=== PATIENT | female | born 1985 | race Caucasian/White ===

== ENCOUNTER 2018-05-31 12:36 | Emergency (ER) | payer SELFPAY ==
[2018-05-31] MEDS ORDERED: HYDROCODONE/APAP 7.5/325 MG TAB ONE (13:29)
--- NOTE | 2018-05-31 13:41 | RAD REPORT ---
EXAM DESCRIPTION: RAD - Ankle Left 3 View -05/31/2018 1:36 pm CLINICAL HISTORY: Left ankle pain status post injury FINDINGS: No fracture or dislocation is seen. Soft tissue swelling present
--- NOTE | 2018-05-31 13:56 | ER ---
Nurse's Notes [facility] Name: Freddy Howard Age: 32 yrs Sex: Female : 1985 Arrival Date: 05/31/2018 Time: 12:39 Bed 9 Private MD: None, None Diagnosis: Left ankle sprain Presentation: 05/31 12:54 Presenting complaint: Patient states: was walking in heels last night, stepped wrong, iw now can't put weight on left ankle. Transition of care: patient was not received from another setting of care. Onset of symptoms was May 31, 2018. Risk Assessment: Do you want to hurt yourself or someone else? Patient reports no desire to harm self or others. Initial Sepsis Screen: Does the patient meet any 2 criteria? No. Patient's initial sepsis screen is negative. Does the patient have a suspected source of infection? No. Patient's initial sepsis screen is negative. Care prior to arrival: None. 12:54 Method Of Arrival: Wheelchair iw 12:54 Acuity: SHELLY 4 iw Triage Assessment: 14:15 General: Appears in no apparent distress. iw 14:15 General: Behavior is calm. 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 - Social history:: Smoking status: Patient uses tobacco products, denies chronic smoking, but will smoke occasionally. - Ebola Screening: : Patient negative for fever greater than or equal to 101.5 degrees Fahrenheit, and additional compatible Ebola Virus Disease symptoms Patient denies exposure to infectious person Patient denies travel to an Ebola-affected area in the 21 days before illness onset No symptoms or risks identified at this time. Screenin:17 Abuse screen: Denies threats or abuse. Denies injuries from another. Nutritional iw screening: No deficits noted. Tuberculosis screening: No symptoms or risk factors identified. Fall Risk Fall in past 12 months (25 points). Assessment: 13:15 General: Appears in no apparent distress. Behavior is calm, cooperative. Pain: iw Complains of pain in left foot and left lateral malleolus. Neuro: Level of Consciousness is awake, alert, obeys commands, Oriented to person, place, time, situation, Moves all extremities. Cardiovascular: Patient's skin is warm and dry. Respiratory: Respiratory effort is even, unlabored, Respiratory pattern is regular. Derm: Skin is intact, is healthy with good turgor. Musculoskeletal: Range of motion: limited in left ankle Swelling present in left foot. Vital Signs: 12:56 BP 106 / 84; Pulse 89; Resp 16; Temp 98.2; Pulse Ox 98% on R/A; Weight 61.23 kg; Height iw 5 ft. 5 in. (165.10 cm); Pain 10/10; 12:56 Body Mass Index 22.46 (61.23 kg, 165.10 cm) iw ED Course: 12:39 Patient arrived in ED. mr 12:40 None, None is Private Physician. mr 12:56 Triage completed. iw 12:58 Fred Crook MD is Attending Physician. ps1 13:14 Rima Mccoy RN is Primary Nurse. iw 13:15 Arm band placed on. iw 13:15 Patient has correct armband on for positive identification. iw 13:35 X-ray completed. Portable x-ray completed in exam room. Patient tolerated procedure jb2 well. 13:39 Ankle Left 3 View XRAY In Process Unspecified. EDMS 14:17 No provider procedures requiring assistance completed. Patient did not have IV access iw during this emergency room visit. Administered Medications: 13:23 Drug: Mineral (7.5 mg-325 mg) 1 tabs Route: PO; iw Outcome: 13:55 Discharge ordered by . ps1 14:17 Discharged to home ambulatory, with crutches, with family. iw 14:17 Condition: good 14:17 Discharge instructions given to patient, Instructed on discharge instructions, follow up and referral plans. medication usage, Demonstrated understanding of instructions, follow-up care, medications, Prescriptions given X 4. 14:18 Patient left the ED. iw Signatures: Dispatcher [employer] [address] Manjinder jb2 Rima Mccoy, SHIRLEY RN iw Fred Crook MD MD ps1
--- NOTE | 2018-05-31 13:56 | EDPHYS ---
Physician Documentation [facility] Name: Freddy Howard Age: 32 yrs Sex: Female : 1985 Arrival Date: 05/31/2018 Time: 12:39 Bed 9 Private MD: None, None ED Physician Fred Crook HPI: 05/31 13:03 This 32 yrs old Female presents to ER via Wheelchair with complaints of Ankle ps1 Injury. 13:03 Onset was last night at [employer]. Patient was going to bathroom and rolled ankle. ps1 Braced herself and did not fall. Described an eversion injury. Now has pain and swelling in left ankle. Pain localized to lateral malleolus. Rated as moderate. Unable to bear weight. . 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 - Social history:: Smoking status: Patient uses tobacco products, denies chronic smoking, but will smoke occasionally. - Ebola Screening: : Patient negative for fever greater than or equal to 101.5 degrees Fahrenheit, and additional compatible Ebola Virus Disease symptoms Patient denies exposure to infectious person Patient denies travel to an Ebola-affected area in the 21 days before illness onset No symptoms or risks identified at this time. ROS: 13:03 Constitutional: Negative for fever, chills, and weight loss, Eyes: Negative for injury, ps1 pain, redness, and discharge, ENT: Negative for injury, pain, and discharge, Cardiovascular: Negative for chest pain, palpitations, and edema, Respiratory: Negative for shortness of breath, cough, wheezing, and pleuritic chest pain, Abdomen/GI: Negative for abdominal pain, nausea, vomiting, diarrhea, and constipation, Back: Negative for injury and pain, Skin: Negative for injury, rash, and discoloration, Neuro: Negative for headache, weakness, numbness, tingling, and seizure, Psych: Negative for depression, anxiety, suicide ideation, homicidal ideation, and hallucinations. 13:03 MS/extremity: Positive for contusion, decreased range of motion, tenderness, of the left lateral malleolus. Exam: 13:57 Constitutional: This is a well developed, well nourished patient who is awake, alert, ps1 and in no acute distress. Head/Face: Normocephalic, atraumatic. Eyes: Pupils equal round and reactive to light, extra-ocular motions intact. Lids and lashes normal. Conjunctiva and sclera are non-icteric and not injected. Chest/axilla: Normal chest wall appearance and motion. Nontender with no deformity. No lesions are appreciated. Cardiovascular: Regular rate and rhythm. No gallops, murmurs, or rubs. Normal PMI, no JVD. No pulse deficits. Respiratory: Lungs have equal breath sounds bilaterally, clear to auscultation and percussion. No rales, rhonchi or wheezes noted. No increased work of breathing, no retractions or nasal flaring. Abdomen/GI: Soft, non-tender, with normal bowel sounds. No distension or tympany. No guarding or rebound. No evidence of tenderness throughout. Neuro: Awake and alert, GCS 15, oriented to person, place, time, and situation. Cranial nerves II-XII grossly intact. Sensory grossly intact. 13:57 Musculoskeletal/extremity: Extremities: grossly normal except: noted in the left lateral malleolus: decreased ROM, ecchymosis, pain. Vital Signs: 12:56 BP 106 / 84; Pulse 89; Resp 16; Temp 98.2; Pulse Ox 98% on R/A; Weight 61.23 kg; Height iw 5 ft. 5 in. (165.10 cm); Pain 10/10; 12:56 Body Mass Index 22.46 (61.23 kg, 165.10 cm) iw MDM: 13:09 Patient medically screened. ps1 13:57 Data reviewed: vital signs, nurses notes, radiologic studies, and as a result, I will ps1 discharge patient. 05/31 13:10 Order name: Ankle Left 3 View XRAY ps1 Administered Medications: 13:23 Drug: Palmetto (7.5 mg-325 mg) 1 tabs Route: PO; iw Disposition: 05/31/18 13:55 Discharged to Home. Impression: Left ankle sprain. - Condition is Stable. - Discharge Instructions: Ankle Sprain. - Prescriptions for Anaprox DS 550 mg Oral Tablet - take 1 tablet by ORAL route every 12 hours As needed; 20 tablet. Robaxin 500 mg Oral Tablet - take 2 tablet by ORAL route every 6 hours As needed; 40 tablet. Tylenol- Codeine #3 300-30 mg Oral Tablet - take 2 tablet by ORAL route every 6 hours As needed; 30 tablet. Medrol (Eliezer) 4 mg Oral Tablets, Dose Pack - take 1 tablet by ORAL route as directed - follow package instructions; 1 packet. - Medication Reconciliation Form, Thank You Letter, Antibiotic Education, Prescription Opioid Use form. - Follow up: Private Physician; When: As needed; Reason: Further diagnostic work-up, Recheck today's complaints, Continuance of care. Follow up: Emergency Department; When: As needed; Reason: Worsening of condition. - Problem is new. - Symptoms have improved. Signatures: Dispatcher [employer] [facility] Rima Mccoy RN RN iw Fred Crook MD MD ps1 Corrections: (The following items were deleted from the chart) 13:23 13:10 Ankle Left 3 View+RAD.RAD.BRZ ordered. [facility] 14:18 13:55 05/31/2018 13:55 Discharged to Home. Impression: Left ankle sprain. Condition is iw Stable. Forms are Medication Reconciliation Form, Thank You Letter, Antibiotic Education, Prescription Opioid Use. Follow up: Private Physician; When: As needed; Reason: Further diagnostic work-up, Recheck today's complaints, Continuance of care. Follow up: Emergency Department; When: As needed; Reason: Worsening of condition. Problem is new. Symptoms have improved. ps1
== END 2018-05-31 14:18 | disposition home or self-care (01) ==
LOC: ER 12:36
DX: S93.402A Sprain of unspecified ligament of left ankle, initial encounter (principal); X58.XXXA Exposure to other specified factors, initial encounter; Y93.89 Activity, other specified; Y92.511 Restaurant or cafe as the place of occurrence of the external cause; Z72.0 Tobacco use
CPT/HCPCS: 99283

== ENCOUNTER 2019-06-03 04:39 | Emergency (ER) | payer SELFPAY ==
--- OUTSIDE RECORDS SUMMARY | 2019-06-03 04:41 | XMS REPORT ---
:1985 Author Organization [facility] Address [address] [place] [address] [place] [id number] Care Team Providers Name Role Phone Unavailable Unavailable Unavailable Problems This patient has no known problems. Allergies, Adverse Reactions, Alerts This patient has no known allergies or adverse reactions. Medications This patient has no known medications.
[2019-06-03] MEDS ORDERED: ONDANSETRON 4 MG/2 ML VIAL ONE (05:08)
[2019-06-03 05:16] LABS: Absolute Lymphocytes (CBC) 1.3 K/uL (0.7-4.9); Basophils % 0.4 % (0-1.3); Hematocrit 30.6 % (36.0-45.0); Lymphocytes % 31.9 % (15.3-44.8); MPV 8.9 fL (7.6-11.3); RBC Red Blood Cell Count 3.92 M/uL (3.86-4.86)
[2019-06-03] MEDS ORDERED: MORPHINE 2 MG/ML SYR ONE (05:19)
[2019-06-03] MEDS ORDERED: NA CHLORIDE 0.9% 1,000 ML ONE (05:19)
[2019-06-03 06:08] LABS: ALT/SGPT 18 U/L (12-78); AST/SGOT 21 U/L (15-37); Albumin 3.9 g/dL (3.4-5.0); Alkaline Phosphatase 57 U/L (45-117); BUN Blood Urea Nitrogen 11 mg/dL (7-18); Bicarbonate 26 mmol/L (21-32); Bilirubin Direct < 0.1 mg/dL (0-0.2); Bilirubin Total 0.2 mg/dL (0.2-1.0); Glucose Level 92 mg/dL (74-106); Lipase 127 U/L (73-393); Potassium 3.5 mmol/L (3.5-5.1); Protein, Total 7.7 g/dL (6.4-8.2); Sodium Level 140 mmol/L (136-145)
[2019-06-03] MEDS ORDERED: KETOROLAC 30 MG/ML INJ ONE (06:27)
--- NOTE | 2019-06-03 06:29 | ER ---
Nurse's Notes [facility] Name: Freddy Howard Age: 33 yrs Sex: Female : 1985 Arrival Date: 06/03/2019 Time: 04:42 Bed 5 Private MD: Diagnosis: Vomiting;Streptococcal pharyngitis;Cough Presentation: 06/03 04:44 Presenting complaint: Patient states: I have had a cough for a week, it became jb4 productive on Tuesday. I vomited once on Tuesday. Then I developed a migraine headache today and have vomited 5 times. 04:44 Transition of care: patient was not received from another setting of care. Onset of jb4 symptoms was May 27, 2019. Risk Assessment: Do you want to hurt yourself or someone else? Patient reports no desire to harm self or others. Initial Sepsis Screen: Does the patient meet any 2 criteria? No. Patient's initial sepsis screen is negative. Does the patient have a suspected source of infection? Yes: Productive cough/pneumonia. Care prior to arrival: None. 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 - Coronavirus screen:: The patient has NOT traveled to [place] in the past 14 days. Proceed with normal triage process as indicated. The patient has NOT had contact with known/suspected case of Coronavirus? Proceed with normal triage procedures. - Social history:: Smoking status: Patient reports the use of cigarette tobacco products, denies chronic smoking, but will smoke occasionally. - Family history:: not pertinent. - Ebola Screening: : No symptoms or risks identified at this time. Screenin:44 Abuse screen: Denies threats or abuse. Nutritional screening: No deficits noted. jb4 Tuberculosis screening: No symptoms or risk factors identified. Fall Risk None identified. Assessment: 04:44 General: Appears in no apparent distress. uncomfortable, Behavior is calm, cooperative, jb4 appropriate for age. Pain: Complains of pain in headache. Pain does not radiate. Pain currently is 10 out of 10 on a pain scale. Quality of pain is described as throbbing. Neuro: Level of Consciousness is awake, alert, obeys commands, Oriented to person, place, time, situation. Cardiovascular: Patient's skin is warm and dry. Respiratory: Airway is patent Respiratory effort is even, unlabored, Respiratory pattern is regular, symmetrical. GI: Abdomen is flat, non-distended, Reports nausea, vomiting. : No signs and/or symptoms were reported regarding the genitourinary system. EENT: No signs and/or symptoms were reported regarding the EENT system. Derm: Skin is intact, Skin is pink, warm \T\ dry. Musculoskeletal: Circulation, motion, and sensation intact. Range of motion: intact in all extremities. 05:45 Reassessment: Patient appears in no apparent distress at this time. Patient and/or jb4 family updated on plan of care and expected duration. Pain level reassessed. Patient is alert, oriented x 3, equal unlabored respirations, skin warm/dry/pink. Rates pain at 7/10 from 10/10 Patient states feeling better. 06:48 Reassessment: Patient appears in no apparent distress at this time. Patient and/or jb4 family updated on plan of care and expected duration. Pain level reassessed. Patient is alert, oriented x 3, equal unlabored respirations, skin warm/dry/pink. PT has decreased to 1/10 Patient states feeling better. Vital Signs: 04:44 BP 129 / 88; Pulse 75; Resp 16; Temp 98.4(O); Pulse Ox 98% on R/A; Weight 61.23 kg (R); jb4 Height 5 ft. 5 in. (165.10 cm) (R); Pain 10/10; 05:45 BP 109 / 62; Pulse 64; Resp 16; Pulse Ox 100% on R/A; jb4 06:00 Pain 7/10; jb4 06:30 BP 104 / 70; Pulse 76; Resp 16; Pulse Ox 98% on R/A; jb4 04:44 Body Mass Index 22.46 (61.23 kg, 165.10 cm) jb4 ED Course: 04:42 Patient arrived in ED. es 04:44 Arm band placed on right wrist. jb4 04:44 Patient has correct armband on for positive identification. Bed in low position. Call jb4 light in reach. Side rails up X 1. Pulse ox on. NIBP on. 04:48 Basil Scales MD is Attending Physician. yolette 04:53 El Flanagan, RN is Primary Nurse. jb4 04:58 Triage completed. jb4 05:12 Inserted saline lock: 20 gauge in right antecubital area, using aseptic technique. jd3 Blood collected. placed by Tamiko VIGIL. 06:55 No provider procedures requiring assistance completed. IV discontinued, intact, jb4 bleeding controlled, No redness/swelling at site. Pressure dressing applied. 08:56 Chest Pa And Lat (2 Views) XRAY In Process Unspecified. EDMS 09:02 CT Head Brain wo Cont In Process Unspecified. EDMS Administered Medications: 05:05 Drug: Zofran 4 mg Route: IVP; Site: right antecubital; jb4 06:00 Follow up: Response: No adverse reaction; Nausea is decreased jb4 05:20 Drug: morphine 2 mg Route: IVP; Site: right antecubital; jb4 06:00 Follow up: Pain 7/10 Adult; Response: No adverse reaction; Pain is decreased; RASS: jb4 Alert and Calm (0) 05:46 Drug: NS 0.9% 1000 ml Route: IV; Rate: 1 bolus; Site: right antecubital; jb4 06:30 Follow up: Response: No adverse reaction; IV Status: Completed infusion; IV Intake: jb4 1000ml 06:26 Drug: TORadol 30 mg Route: IVP; Site: right antecubital; jb4 06:47 Follow up: Response: No adverse reaction; Pain is decreased jb4 06:42 Drug: Rocephin 1 grams Route: IV; Rate: per protocol; Site: right antecubital; jb4 06:45 Follow up: Response: No adverse reaction; IV Status: Completed infusion; IV Intake: 30xisc7 06:44 Drug: Augmentin 875 mg Route: PO; jb4 06:46 Follow up: Response: No adverse reaction; Medication administered at discharge. jb4 Intake: 06:30 IV: 1000ml; Total: 1000ml. jb4 06:45 IV: 10ml; Total: 1010ml. jb4 Outcome: 06:29 Discharge ordered by . yolette 06:55 Discharged to home ambulatory, with friend. jb4 06:55 Condition: stable 06:55 Discharge instructions given to patient, friend, Instructed on discharge instructions, follow up and referral plans. medication usage, Demonstrated understanding of instructions, follow-up care, medications, Prescriptions given X 3. 06:56 Patient left the ED. jb4 Signatures: Dispatcher [employer] Basil Solorzano MD MD cha Salyer, Edna es Bryson, James RN RN jb4 Lance Varghese RN RN jd3 Corrections: (The following items were deleted from the chart) 06:30 05:45 Reassessment: Patient appears in no apparent distress at this time. Patient jb4 and/or family updated on plan of care and expected duration. Pain level reassessed. Patient is alert, oriented x 3, equal unlabored respirations, skin warm/dry/pink. Patient states feeling better. jb4
--- NOTE | 2019-06-03 06:30 | EDPHYS ---
Physician Documentation [facility] Name: Freddy Howard Age: 33 yrs Sex: Female : 1985 Arrival Date: 06/03/2019 Time: 04:42 Bed 5 Private MD: ED Physician Basil Scales HPI: 06/03 05:13 This 33 yrs old Female presents to ER via Ambulatory with complaints of yolette Vomiting, Headache, Cough. 05:13 The patient presents to the emergency department with nausea, vomiting. Onset: The yolette symptoms/episode began/occurred 5 day(s) ago. Possible causes: unknown. The symptoms are aggravated by nothing. The symptoms are alleviated by nothing. Associated signs and symptoms: The patient has no apparent associated signs or symptoms. Severity of symptoms: At their worst the symptoms were moderate in the emergency department the symptoms are unchanged. The patient has not experienced similar symptoms in the past. 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 - Coronavirus screen:: The patient has NOT traveled to [place] in the past 14 days. Proceed with normal triage process as indicated. The patient has NOT had contact with known/suspected case of Coronavirus? Proceed with normal triage procedures. - Social history:: Smoking status: Patient reports the use of cigarette tobacco products, denies chronic smoking, but will smoke occasionally. - Family history:: not pertinent. - Ebola Screening: : No symptoms or risks identified at this time. ROS: 05:13 Constitutional: Negative for fever, chills, and weight loss, Eyes: Negative for injury, yolette pain, redness, and discharge, ENT: Negative for injury, pain, and discharge, Neck: Negative for injury, pain, and swelling, Cardiovascular: Negative for chest pain, palpitations, and edema, Back: Negative for injury and pain, : Negative for injury, bleeding, discharge, and swelling, MS/Extremity: Negative for injury and deformity, Skin: Negative for injury, rash, and discoloration, Psych: Negative for depression, anxiety, suicide ideation, homicidal ideation, and hallucinations, Allergy/Immunology: Negative for hives, rash, and allergies, Endocrine: Negative for neck swelling, polydipsia, polyuria, polyphagia, and marked weight changes, Hematologic/Lymphatic: Negative for swollen nodes, abnormal bleeding, and unusual bruising. 05:13 Respiratory: Positive for cough. 05:13 Abdomen/GI: Positive for nausea and vomiting. 05:13 Neuro: Positive for headache. Exam: 05:13 Constitutional: This is a well developed, well nourished patient who is awake, alert, yolette and in no acute distress. Head/Face: Normocephalic, atraumatic. Eyes: Pupils equal round and reactive to light, extra-ocular motions intact. Lids and lashes normal. Conjunctiva and sclera are non-icteric and not injected. Cornea within normal limits. Periorbital areas with no swelling, redness, or edema. ENT: Nares patent. No nasal discharge, no septal abnormalities noted. Tympanic membranes are normal and external auditory canals are clear. Oropharynx with no redness, swelling, or masses, exudates, or evidence of obstruction, uvula midline. Mucous membranes moist. Neck: Trachea midline, no thyromegaly or masses palpated, and no cervical lymphadenopathy. Supple, full range of motion without nuchal rigidity, or vertebral point tenderness. No Meningismus. Chest/axilla: Normal chest wall appearance and motion. Nontender with no deformity. No lesions are appreciated. Cardiovascular: Regular rate and rhythm with a normal S1 and S2. No gallops, murmurs, or rubs. Normal PMI, no JVD. No pulse deficits. Respiratory: Lungs have equal breath sounds bilaterally, clear to auscultation and percussion. No rales, rhonchi or wheezes noted. No increased work of breathing, no retractions or nasal flaring. Abdomen/GI: Soft, non-tender, with normal bowel sounds. No distension or tympany. No guarding or rebound. No evidence of tenderness throughout. Back: No spinal tenderness. No costovertebral tenderness. Full range of motion. Female : Normal external genitalia. Skin: Warm, dry with normal turgor. Normal color with no rashes, no lesions, and no evidence of cellulitis. MS/ Extremity: Pulses equal, no cyanosis. Neurovascular intact. Full, normal range of motion. Neuro: Awake and alert, GCS 15, oriented to person, place, time, and situation. Cranial nerves II-XII grossly intact. Motor strength 5/5 in all extremities. Sensory grossly intact. Cerebellar exam normal. Normal gait. Psych: Awake, alert, with orientation to person, place and time. Behavior, mood, and affect are within normal limits. 05:13 Neck: ROM/movement: is normal, no acute changes, Meningeal signs: are not present, Kernig's sign is negative, Brudzinski's sign is negative. Vital Signs: 04:44 BP 129 / 88; Pulse 75; Resp 16; Temp 98.4(O); Pulse Ox 98% on R/A; Weight 61.23 kg (R); jb4 Height 5 ft. 5 in. (165.10 cm) (R); Pain 10/10; 05:45 BP 109 / 62; Pulse 64; Resp 16; Pulse Ox 100% on R/A; jb4 06:00 Pain 7/10; jb4 06:30 BP 104 / 70; Pulse 76; Resp 16; Pulse Ox 98% on R/A; jb4 04:44 Body Mass Index 22.46 (61.23 kg, 165.10 cm) 4 MDM: 04:48 Patient medically screened. [facility] 05:15 Data reviewed: vital signs, nurses notes, lab test result(s), radiologic studies, CT yolette scan, plain films. 06/03 05:01 Order name: Basic Metabolic Panel [facility] 06/03 05:01 Order name: CBC with Diff [facility] 06/03 05:01 Order name: Creatinine for Radiology [facility] 06/03 05:01 Order name: Hepatic Function [facility] 06/03 05:01 Order name: Lipase [facility] 06/03 05:12 Order name: Strep [facility] 06/03 05:12 Order name: Flu [facility] 06/03 05:16 Order name: CBC with Automated Diff; Complete Time: 06:04 [facility] 06/03 05:48 Order name: Creatinine (Radiology Only); Complete Time: 06:04 [facility] 06/03 05:56 Order name: Group A Streptococcus Rapid Sc; Complete Time: 06:04 [facility] 06/03 05:56 Order name: Influenza Screen (A ; Complete Time: 06:04 [facility] 06/03 06:09 Order name: Basic Metabolic Panel; Complete Time: 06:22 [facility] 06/03 06:09 Order name: Liver (Hepatic) Function; Complete Time: 06:22 [facility] 06/03 06:09 Order name: Lipase; Complete Time: 06:22 [facility] 06/03 05:01 Order name: IV Saline Lock; Complete Time: 05:08 [facility] 06/03 05:01 Order name: Labs collected and sent; Complete Time: 05:09 [facility] 06/03 05:01 Order name: Chest Pa And Lat (2 Views) XRAY [facility] 06/03 05:12 Order name: CT Head Brain wo Cont [facility] 06/03 05:12 Order name: Urine Dipstick-Ancillary (obtain specimen); Complete Time: 06:12 [facility] 06/03 05:12 Order name: Urine Test (obtain specimen); Complete Time: 06:12 [facility] 06/03 06:14 Order name: Urine Dipstick--Ancillary (enter results) ar5 06/03 06:14 Order name: Urine --Ancillary (enter results) id5 Administered Medications: 05:05 Drug: Zofran 4 mg Route: IVP; Site: right antecubital; 4 06:00 Follow up: Response: No adverse reaction; Nausea is decreased jb4 05:20 Drug: morphine 2 mg Route: IVP; Site: right antecubital; jb4 06:00 Follow up: Pain 7/10 Adult; Response: No adverse reaction; Pain is decreased; RASS: 4 Alert and Calm (0) 05:46 Drug: NS 0.9% 1000 ml Route: IV; Rate: 1 bolus; Site: right antecubital; jb4 06:30 Follow up: Response: No adverse reaction; IV Status: Completed infusion; IV Intake: jb4 1000ml 06:26 Drug: TORadol 30 mg Route: IVP; Site: right antecubital; jb4 06:47 Follow up: Response: No adverse reaction; Pain is decreased jb4 06:42 Drug: Rocephin 1 grams Route: IV; Rate: per protocol; Site: right antecubital; jb4 06:45 Follow up: Response: No adverse reaction; IV Status: Completed infusion; IV Intake: [id number] 06:44 Drug: Augmentin 875 mg Route: PO; jb4 06:46 Follow up: Response: No adverse reaction; Medication administered at discharge. jb4 Disposition: 06/03/19 06:29 Discharged to Home. Impression: Vomiting, Streptococcal pharyngitis, Cough. - Condition is Stable. - Discharge Instructions: Nausea and Vomiting, Adult, Pharyngitis, Sore Throat, Strep Throat, Nausea and Vomiting, Adult, [id number], Cough, Adult, [id number], Cough, Adult. - Prescriptions for Augmentin 875- 125 mg Oral Tablet - take 1 tablet by ORAL route every 12 hours for 7 days; 14 tablet. Zofran 4 mg Oral Tablet - take 1 tablet by ORAL route every 12 hours As needed; 20 tablet. Guaifenesin AC 10- 100 mg/5 mL Oral Liquid - take 10 milliliters by ORAL route every 4 hours As needed; 150 milliliter. - Medication Reconciliation Form, Thank You Letter, Antibiotic Education, Prescription Opioid Use form. - Follow up: Private Physician; When: 2 - 3 days; Reason: Recheck today's complaints, Continuance of care, Re-evaluation by your physician. - Problem is new. - Symptoms have improved. Signatures: Dispatcher [employer] EDBasil Keller MD MD cha Bryson, James RN RN jb4 Corrections: (The following items were deleted from the chart) 06:56 06:29 06/03/2019 06:29 Discharged to Home. Impression: Vomiting; Streptococcal jb4 pharyngitis; Cough. Condition is Stable. Forms are Medication Reconciliation Form, Thank You Letter, Antibiotic Education, Prescription Opioid Use. Follow up: Private Physician; When: 2 - 3 days; Reason: Recheck today's complaints, Continuance of care, Re-evaluation by your physician. Problem is new. Symptoms have improved. yolette
[2019-06-03] MEDS ORDERED: AMOX/K CLAV 875 MG TAB ONE (06:41)
[2019-06-03] MEDS ORDERED: CEFTRIAXONE/SWI 1gm 1 GM/10 ML SYR ONE (06:41)
[2019-06-03 07:20] VITALS: TEMP 98.5
[2019-06-03 07:21] VITALS: BP 100/70; O2SAT 99
[2019-06-03 08:28] LABS: Urine Blood TRACE (NEG); Urine Glucose NEGATIVE (NEG); Urine Protein NEGATIVE (NEG); Urine pH 6.5 (5.0-7.0)
--- NOTE | 2019-06-03 09:51 | RAD REPORT ---
EXAM DESCRIPTION: Patti Santizo (2 Views)06/03/2019 5:39 am CLINICAL HISTORY: Cough COMPARISON: 2018 FINDINGS: The lungs appear clear of acute infiltrate. The heart is normal size IMPRESSION: No acute abnormalities displayed
--- NOTE | 2019-06-04 11:07 | RAD REPORT ---
EXAM DESCRIPTION: CT - Head Brain Wo Cont - 06/03/2019 6:56 am CLINICAL HISTORY: PAIN COMPARISON: 05/22/2017 TECHNIQUE: Axial unenhanced CT imaging of the brain. Reformatted coronal and sagittal images obtaine d. This examination was performed according to our departmental dose optimization program, which include s automated exposure control, adjustment of the mA and/or kV according to patient size and/or use of iterative reconstruction technique. FINDINGS: The ventricles and extra-axial fluid spaces appear normal. The de la rosa-white matter different iation is preserved. There is no hemorrhage. No mass, edema, mass effect, or midline shift. The cereb ellar tonsils are low-lying but not ectopic. Vermis appears normal. No prepontine cistern effacement. Normal sella contents. Normal appearance of the globes and remaining intraorbital contents. The sinuses and mastoid air cell s are clear. Skull base and calvarium appear normal. IMPRESSION: 1. Negative CT brain. Electronically signed by: Rekha Fernández DO 06/03/2019 5:48 AM SALES HOST Due to temporary technical issues with the PACS/Fluency reporting system, reports are being signed by the in house radiologist as a courtesy to ensure prompt reporting. The interpreting radiologist is f ully responsible for the content of the report.
== END 2019-06-03 06:56 | disposition home or self-care (01) ==
LOC: ER 04:39
DX: J02.0 Streptococcal pharyngitis (principal); R05 Cough; Z72.0 Tobacco use
CPT/HCPCS: 36415; 70450; 71046; 80048; 80076; 81003; 81025; 83690; 85025; 87081; 87804; 96361; 96374; 96375; 99284; J0696; J2270; J2405; J7030

== ENCOUNTER 2020-05-25 08:29 | Emergency (ER) | payer SELFPAY ==
[2020-05-25 09:04] LABS: Absolute Lymphocytes (CBC) 1.4 K/uL (0.7-4.9); Basophils % 0.8 % (0-1.3); Hematocrit 26.4 % (36.0-45.0); MPV 9.5 fL (7.6-11.3); RBC Red Blood Cell Count 3.29 M/uL (3.86-4.86)
[2020-05-25 09:07] LABS: Protime INR 0.97
[2020-05-25] MEDS ORDERED: NALOXONE HCL 2 MG/2 ML VIAL ONE ×2 (09:13→10:55)
[2020-05-25] MEDS ORDERED: ONDANSETRON 4 MG/2 ML VIAL ONE (09:22)
[2020-05-25 09:32] LABS: ALT/SGPT 12 U/L (12-78); AST/SGOT 13 U/L (15-37); Albumin 3.6 g/dL (3.4-5.0); Alkaline Phosphatase 40 U/L (45-117); BUN Blood Urea Nitrogen 11 mg/dL (7-18); Bicarbonate 26 mmol/L (21-32); Bilirubin Direct < 0.1 mg/dL (0-0.2); Bilirubin Total 0.2 mg/dL (0.2-1.0); Glucose Level 76 mg/dL (74-106); Potassium 3.7 mmol/L (3.5-5.1); Protein, Total 6.5 g/dL (6.4-8.2); Sodium Level 142 mmol/L (136-145)
[2020-05-25 11:26] LABS: Urine Blood NEGATIVE (NEG); Urine Glucose NEGATIVE (NEG); Urine Protein NEGATIVE (NEG); Urine Specific Gravity 1.025 (1.005-1.030)
[2020-05-25 11:51] LABS: Barbiturates NEGATIVE (NEGATIVE); Benzodiazepines NEGATIVE (NEGATIVE); Cocaine NEGATIVE (NEGATIVE); METHAMPHETAM NEGATIVE (NEGATIVE); Methadone NEGATIVE (NEGATIVE); Opiates POSITIVE (NEGATIVE); Phencyclidine NEGATIVE (NEGATIVE); THC Cannibis NEGATIVE (NEGATIVE)
--- NOTE | 2020-05-25 12:17 | EDPHYS ---
Physician Documentation [facility] Name: Freddy Howard Age: 34 yrs Sex: Female : 1985 Arrival Date: 05/25/2020 Time: 08:30 Bed 4 Private MD: ED Physician Parvez Cortez HPI: 05/25 09:04 This 34 yrs old Female presents to ER via EMS with complaints of Possible tw4 Overdose. 09:04 The patient presents to the emergency department after a known overdose, a result of tw4 recreational substance abuse. Context: Method: the patient has a confirmed or suspected ingestion, of narcotics, Time: yesterday, last night. Associated signs and symptoms: Pertinent positives: decreased level of consciousness. Severity of symptoms: At their worst the symptoms were moderate in the emergency department the symptoms are unchanged. The patient has not experienced similar symptoms in the past. Historical: - Allergies: 08:35 NKA; ph - PMHx: 08:35 None; ph - PSHx: 08:35 None; ph - Immunization history:: Adult Immunizations unknown. - Social history:: Smoking status: Patient reports the use of cigarette tobacco products, smokes one-half pack cigarettes per day. ROS: 11:33 Constitutional: Negative for fever, chills, and weight loss, Eyes: Negative for injury, tw4 pain, redness, and discharge, Cardiovascular: Negative for chest pain, palpitations, and edema, Respiratory: Negative for shortness of breath, cough, wheezing, and pleuritic chest pain, Abdomen/GI: Negative for abdominal pain, nausea, vomiting, diarrhea, and constipation, Back: Negative for injury and pain, MS/Extremity: Negative for injury and deformity, Skin: Negative for injury, rash, and discoloration, Neuro: Negative for headache, weakness, numbness, tingling, and seizure. Exam: 11:33 Chest/axilla: Normal chest wall appearance and motion. Nontender with no deformity. tw4 No lesions are appreciated. Cardiovascular: Regular rate and rhythm with a normal S1 and S2. No gallops, murmurs, or rubs. Normal PMI, no JVD. No pulse deficits. Respiratory: Lungs have equal breath sounds bilaterally, clear to auscultation and percussion. No rales, rhonchi or wheezes noted. No increased work of breathing, no retractions or nasal flaring. Abdomen/GI: Soft, non-tender, with normal bowel sounds. No distension or tympany. No guarding or rebound. No evidence of tenderness throughout. Skin: Warm, dry with normal turgor. Normal color with no rashes, no lesions, and no evidence of cellulitis. MS/ Extremity: Pulses equal, no cyanosis. Neurovascular intact. Full, normal range of motion. Neuro: Awake and alert, GCS 15, oriented to person, place, time, and situation. Cranial nerves II-XII grossly intact. Motor strength 5/5 in all extremities. Sensory grossly intact. Cerebellar exam normal. Normal gait. 11:33 Constitutional: The patient appears somnolent Vital Signs: 08:31 BP 102 / 63; Pulse 96; Resp 20; Temp 97.0; Pulse Ox 99% on R/A; Weight 63.5 kg; ph 09:34 BP 101 / 62; Pulse 88; Resp 16; Pulse Ox 100% on R/A; ph 10:30 BP 105 / 63; Pulse 87; Resp 18; Pulse Ox 99% on R/A; ph 11:43 BP 95 / 51; Pulse 92; Resp 16; Pulse Ox 99% on R/A; ph 11:43 pt lying on side ph MDM: 12:17 Patient medically screened. tw4 16:51 Differential diagnosis: Ingestion/exposure to opiates polypharmacy, over medication. tw4 Data reviewed: vital signs, nurses notes. Data interpreted: Pulse oximetry: Interpretation: normal. Counseling: I had a detailed discussion with the patient and/or guardian regarding: the historical points, exam findings, and any diagnostic results supporting the discharge/admit diagnosis, lab results. Special discussion: I discussed with the patient/guardian in detail that at this point there is no indication for admission to the hospital. It is understood, however, that if the symptoms persist or worsen the patient needs to return immediately for re-evaluation. 05/25 08:35 Order name: Acetaminophen 05/25 08:35 Order name: Basic Metabolic Panel 05/25 08:35 Order name: CBC with Diff 05/25 08:35 Order name: ETOH Level 05/25 08:35 Order name: Hepatic Function 05/25 08:35 Order name: PT-INR 05/25 08:35 Order name: Ptt, Activated 05/25 08:35 Order name: Salicylate 05/25 08:35 Order name: Urine Drug Screen 05/25 09:07 Order name: CBC with Automated Diff; Complete Time: 10:43 [facility] 05/25 09:08 Order name: Protime (+INR); Complete Time: 10:43 [facility] 05/25 09:08 Order name: PTT, Activated Partial Thromb; Complete Time: 10:43 [facility] 05/25 09:29 Order name: Salicylates Level; Complete Time: 10:43 [facility] 05/25 09:32 Order name: Basic Metabolic Panel; Complete Time: 10:43 [facility] 05/25 08:35 Order name: EKG; Complete Time: 08:36 05/25 08:35 Order name: EKG - Nurse/Tech; Complete Time: 08:57 4 05/25 08:35 Order name: IV Saline Lock; Complete Time: 08:42 4 05/25 08:35 Order name: Labs collected and sent; Complete Time: 09:11 4 05/25 08:35 Order name: Urine Dipstick-Ancillary (obtain specimen); Complete Time: 11:45 4 05/25 09:32 Order name: Liver (Hepatic) Function; Complete Time: 10:43 [facility] 05/25 09:32 Order name: Acetaminophen Level; Complete Time: 10:43 [facility] 05/25 09:59 Order name: Alcohol Serum/Plasma; Complete Time: 10:43 [facility] 05/25 11:02 Order name: Urine Dipstick--Ancillary (enter results) 05/25 11:02 Order name: Urine --Ancillary (enter results) 05/25 11:26 Order name: Urine --Ancillary [facility] 05/25 11:26 Order name: Urine Dipstick-Ancillary [facility] 05/25 11:51 Order name: Urine Drug Screen [facility] EC:33 Rate is 88 beats/min. Rhythm is regular. QRS [place] is Normal. SD interval is normal. QRS tw4 interval is normal. QT interval is normal. No Q waves. T waves are Normal. No ST changes noted. Clinical impression: NSR w/ Non-specific ST/T Changes. Interpreted by me. Reviewed by me. Administered Medications: 08:50 Drug: NARcan 1 mg Route: IVP; Site: right antecubital; ph 09:00 Follow up: Response: No adverse reaction ph 09:05 Drug: Zofran (Ondansetron) 4 mg Route: IVP; Site: right antecubital; ph 09:30 Follow up: Response: No adverse reaction ph 10:45 Drug: NARcan 1 mg Route: IVP; Site: right antecubital; ph 11:00 Follow up: Response: No adverse reaction ph Disposition: 05/25/20 12:17 Discharged to Home. Impression: Opiate overdose. - Condition is Stable. - Discharge Instructions: Opioid Overdose. - Medication Reconciliation Form, Thank You Letter, Antibiotic Education, Prescription Opioid Use form. - Follow up: Private Physician; When: Upon discharge from the Emergency Department; Reason: Recheck today's complaints, Continuance of care, Re-evaluation by your physician. - Problem is new. - Symptoms have improved. Signatures: Dispatcher [employer] Fara Martinez RN RN Parvez Cortez MD MD tw4 Corrections: (The following items were deleted from the chart) 12:22 12:17 05/25/2020 12:17 Discharged to Home. Impression: Opiate overdose. Condition is ph Stable. Forms are Medication Reconciliation Form, Thank You Letter, Antibiotic Education, Prescription Opioid Use. Follow up: Private Physician; When: Upon discharge from the Emergency Department; Reason: Recheck today's complaints, Continuance of care, Re-evaluation by your physician. Problem is new. Symptoms have improved. tw4
--- NOTE | 2020-05-25 12:17 | ER ---
Nurse's Notes [facility] Name: Freddy Howard Age: 34 yrs Sex: Female : 1985 Arrival Date: 05/25/2020 Time: 08:30 Bed 4 Private MD: Diagnosis: Opiate overdose Presentation: 05/25 08:31 Chief complaint: EMS states: Pt took unknown amount of Soma last night at approx 2200, ph was arrested while driving and is in police custody, officers noticed her acting lethargic this morning, pt drowsy and shaky, slightly hypotensive, 300 NS given systolic 109, oriented x 4 but slow to respond. Coronavirus screen: Client denies travel out of the [place] in the last 14 days. At this time, the client does not indicate any symptoms associated with coronavirus-19. Ebola Screen: No symptoms or risks identified at this time. Initial Sepsis Screen: Does the patient meet any 2 criteria? No. Patient's initial sepsis screen is negative. Does the patient have a suspected source of infection? No. Patient's initial sepsis screen is negative. Risk Assessment: Do you want to hurt yourself or someone else? Patient reports no desire to harm self or others. Onset of symptoms was May 25, 2020. 08:31 Method Of Arrival: EMS: [facility] 08:31 Acuity: SHELLY 2 ph Historical: - Allergies: 08:35 NKA; ph - PMHx: 08:35 None; ph - PSHx: 08:35 None; ph - Immunization history:: Adult Immunizations unknown. - Social history:: Smoking status: Patient reports the use of cigarette tobacco products, smokes one-half pack cigarettes per day. Screenin:35 Abuse screen: Denies threats or abuse. Denies injuries from another. Nutritional ph screening: No deficits noted. Tuberculosis screening: No symptoms or risk factors identified. Fall Risk None identified. Assessment: 08:44 General: Appears in no apparent distress. comfortable, Behavior is cooperative, drowsy. ph Pain: Denies pain. Neuro: Level of Consciousness is awake, obeys commands, obtunded, Oriented to person, place, time, situation. Cardiovascular: Capillary refill < 3 seconds in bilateral fingers Patient's skin is warm and dry. Respiratory: Airway is patent Respiratory effort is even, unlabored, Respiratory pattern is regular, symmetrical. GI: No signs and/or symptoms were reported involving the gastrointestinal system. Derm: Skin is intact, Skin is pink, warm \\T\\ dry. Musculoskeletal: Circulation, motion, and sensation intact. Range of motion: intact in all extremities. 09:12 Reassessment: Patient appears in no apparent distress at this time. Patient and/or ph family updated on plan of care and expected duration. Pain level reassessed. 1 mg Narcan given per ERP, pt became nauseous but remains drowsy,ERP notified. 09:31 Reassessment: Spoke w/ Mirta at poison control, suggested supportive care and ph toxicology work up, states that Soma can cause seizures, confusion, hallucinations and respiratory depression, intubate PRN, Case # [id number]. 10:45 Reassessment: Patient appears in no apparent distress at this time. Patient and/or ph family updated on plan of care and expected duration. Pain level reassessed. Pt asleep w/ equal and unlabored respirations, additional 1mg Narcan given IVP per provider order, after administration pt sat up in bed but remained drowsy, assisted to bedside commode to obtain urine sample, then fell back asleep after returning to bed, VSS, officers remain at bedside. 12:00 Reassessment: Patient appears in no apparent distress at this time. Patient and/or ph family updated on plan of care and expected duration. Pain level reassessed. Patient is alert, oriented x 3, equal unlabored respirations, skin warm/dry/pink. Pt awake, appears slightly drowsy, ambulated to restroom w/ steady gait, ERP preparing d/c. Overdose: 08:36 [place] Suicide Severity Screening: "In the past month, have you wished you were ph or wished you could go to sleep and not wake up?" Unable to obtain, pt obtunded at this time "In the past month, have you actually had any thoughts of killing yourself?" unable to obtain "In your lifetime, have you ever done anything, started to do anything, or prepared to do anything to end your life?" unable to obtain. Patient took Soma, unknown amount. Overdose occurred more than 10 hours ago. Vital Signs: 08:31 BP 102 / 63; Pulse 96; Resp 20; Temp 97.0; Pulse Ox 99% on R/A; Weight 63.5 kg; ph 09:34 BP 101 / 62; Pulse 88; Resp 16; Pulse Ox 100% on R/A; ph 10:30 BP 105 / 63; Pulse 87; Resp 18; Pulse Ox 99% on R/A; ph 11:43 BP 95 / 51; Pulse 92; Resp 16; Pulse Ox 99% on R/A; ph 11:43 pt lying on side ph ED Course: 08:30 Patient arrived in ED. ph 08:33 Parvez Cortez MD is Attending Physician. tw4 08:34 Triage completed. ph 08:35 Arm band placed on Patient placed in an exam room, on a stretcher, on bdr, ph on pulse oximetry. 08:38 Patient has correct armband on for positive identification. Bed in low position. Call ph light in reach. Side rails up X2. [place] [employer] at bedside. family and consumer sciences teacher on. Pulse ox on. NIBP on. Warm blanket given. 08:42 Fara Cleveland RN is Primary Nurse. ph 08:57 EKG done, by ED staff, reviewed by Parvez Cortez MD. dh3 09:13 Maintain EMS IV. Dressing intact. Good blood return noted. Site clean \\T\\ dry. Gauge \\T\\ ph site: 18 RAC. IV is patent, is intact, with fluids infusing freely, with good blood return, Flushed right saline lock with 5 ml normal saline. 09:33 Acetaminophen Sent. sv 09:33 Basic Metabolic Panel Sent. sv 09:33 CBC with Diff Sent. sv 09:33 ETOH Level Sent. sv 09:33 Hepatic Function Sent. sv 09:33 PT-INR Sent. sv 09:33 Ptt, Activated Sent. sv 09:33 Salicylate Sent. sv 12:08 Urine --Ancillary (enter results) Sent. sv 12:09 Urine Dipstick--Ancillary (enter results) Sent. sv 12:20 No provider procedures requiring assistance completed. IV discontinued, intact, ph bleeding controlled, No redness/swelling at site. Pressure dressing applied. Administered Medications: 08:50 Drug: NARcan 1 mg Route: IVP; Site: right antecubital; ph 09:00 Follow up: Response: No adverse reaction ph 09:05 Drug: Zofran (Ondansetron) 4 mg Route: IVP; Site: right antecubital; ph 09:30 Follow up: Response: No adverse reaction ph 10:45 Drug: NARcan 1 mg Route: IVP; Site: right antecubital; ph 11:00 Follow up: Response: No adverse reaction ph Outcome: 12:17 Discharge ordered by tw4 12:22 Patient left the ED. ph 12:22 Discharged to Law Enforcement ph 12:22 Condition: good 12:22 Discharge instructions given to patient, police, Instructed on discharge instructions, follow up and referral plans. Demonstrated understanding of instructions, follow-up care. Signatures: Kimberly Tamez, RN RN Fara Cleveland RN RN [facility] Parvez Cortez MD MD tw4 Corrections: (The following items were deleted from the chart) 09:34 09:31 Reassessment: Spoke w/ Mirta at poison control, suggested supportive care and ph toxicology work up, states that Soma can cause seizures, confusion, hallucinations and respiratory depression, intubate PRN ph 11:44 11:43 BP 95 / 51; Pulse 92bpm; Resp 16bpm; Pulse Ox 99% RA; ph ph
[2020-05-25 12:27] VITALS: TEMP 97
[2020-05-25 12:29] VITALS: O2SAT 99
[2020-05-25 12:30] VITALS: BP 95/51
--- NOTE | 2020-05-26 13:15 | EKG ---
Test Date: 2020-05-25 Test Time: 08:53:40 Cardiovascular Technician: STEFANY MEASUREMENT RESULTS: Intervals: Rate: 88 WY: 166 QRSD: 76 QT: 390 QTc: 471 [place]: P: 80 WY: 166 QRS: 79 T: 81 INTERPRETIVE STATEMENTS: Normal sinus rhythm Possible Left atrial enlargement Borderline ECG Compared to ECG 05/30/2010 21:49:51 Sinus tachycardia no longer present ST (T wave) deviation no longer present Electronically Signed On 05-26-20 13:12:38 [employer] OPERATOR by Rosalio Hardin
== END 2020-05-25 12:22 | disposition home or self-care (01) ==
LOC: ER 08:29
DX: T40.601A Poisoning by unspecified narcotics, accidental (unintentional), initial encounter (principal); F17.210 Nicotine dependence, cigarettes, uncomplicated
CPT/HCPCS: 36415; 80048; 80076; 80307; 80320; 80329; 81003; 81025; 85025; 85610; 85730; 93005; 96374; 96375; 99291; 99292; J2310; J2405